=== PATIENT | female | born 1965 ===

== ENCOUNTER 2017-02-10 14:12 | Emergency (ER) | payer BC ==
[2017-02-10 14:33] VITALS: BP 144/76
--- NOTE | 2017-02-10 15:07 | UC ---
Karly Coppola Emily, scribed for Erica Mcfarlane MD on 02/10/17 at 1458 . Upper Extremity HPI - HPI Summary HPI Summary: This patient is a 51 year old F presenting to urgent care accompanied by daughter with a chief complaint of L arm pain that began last night. The CC is described as soreness and fullness in the distal upper arm. The patient rates the pain 6/10 in severity. Symptoms minimally relieve by Ibuprofen, 400mg, taken early this am. No analgesia since. Patient reports pain in the muscle. Denies pain in the elbow or wrist. Pt states intermittently gets tingling in L hand. No weakness. Patient denies fevers, chills, CP, SOB, L shoulder pain, and bruising on L arm. No trauma. Pt is LHD. Pt denies direct trauma. Pt reports lifting a heavy turkey and carrying heavy shopping bags in the past 3 days. Patients medications reviewed this visit. - History of Current Complaint Chief Complaint: UCUpperExtremity Stated Complaint: LEFT ARM INJURY Time Seen by Provider: 02/10/17 14:45 Hx Obtained From: Patient Onset/Duration: Sudden Onset, Lasting Days Severity Initially: Moderate Severity Currently: Moderate Pain Intensity: 6 Pain Scale Used: 0-10 Numeric Location Of Pain: Is Discrete @ - left distal tricep Associated Signs And Symptoms: Positive: Other - Positive distal tricep pain.. Negative: Bruising Related History: Dominant Hand Left - Allergies/Home Medications Allergies/Adverse Reactions: Allergies Allergy/AdvReac Type Severity Reaction Status Date / Time Penicillins Allergy Rash Verified 02/10/17 14:34 Home Medications: Home Medications NK [No Home Medications Reported] 02/10/17 [History Confirmed 02/10/17] PMH/Surg Hx/FS Hx/Imm Hx Previously Healthy: Yes Endocrine History: Other Other Endocrine History: Negative diabetes Cardiovascular History: Other Other Cardiovascular History: Negative hypertension - Surgical History Surgical History: Yes Surgery Procedure, Year, and Place: appy, gallbladder - Family History Known Family History: Positive: Diabetes - Sister - Social History Occupation: Employed Full-time Alcohol Use: None Substance Use Type: None Smoking Status (MU): Never Smoked Tobacco - Immunization History Most Recent Influenza Vaccination: unknown Review of Systems Constitutional: Other - Negative fever and chills Skin: Other - Negative bruising Respiratory: Other - Negative SOB Cardiovascular: Other - Negative CP Musculoskeletal: Other: - Positive L arm pain. Negative L shoulder pain Neurological: Other - Positive numbness and tingling in L hand All Other Systems Reviewed And Are Negative: Yes Physical Exam Triage Information Reviewed: Yes Appearance: Well-Appearing, No Pain Distress, Well-Nourished Vital Signs: Initial Vital Signs Temp 98.3 F 02/10/17 14:28 Pulse 86 02/10/17 14:28 Resp 16 02/10/17 14:28 BP 144/76 02/10/17 14:28 Pulse Ox 99 02/10/17 14:28 Vital Signs Reviewed: Yes Eye Exam: Normal Eyes: Positive: Conjunctiva Clear ENT Exam: Normal ENT: Positive: Normal ENT inspection, Hearing grossly normal, Pharynx normal, Pharyngeal erythema, Nasal congestion, Nasal drainage, TMs normal Dental Exam: Normal Neck exam: Normal Neck: Positive: Supple, Nontender, No Lymphadenopathy Respiratory Exam: Normal Respiratory: Positive: Chest non-tender, Lungs clear, Normal breath sounds, No respiratory distress, No accessory muscle use Cardiovascular Exam: Normal Cardiovascular: Positive: RRR, Other: - 2+ radial, 2+ ulnar CBT <2 sec no edema Musculoskeletal: Positive: Other: - + full abduction + full flex/ext elbow, wrist + pronate/supinate No pain along clavilce or scapula no spinous process pain minimal discomfort with palpation distal edge of tricep no edema, ecchymosis No pain with palpation of elbow Neurological: Positive: Other: - + thumb up, a ok, finger spread, finger cross 5 /5 graps Psychological Exam: Normal Skin Exam: Normal Diagnostics - Radiology Elbow XR Radiology Interpretation Completed By: Radiologist - Left elbow XR reveals, per radiologist, no evidence for fracture. ED physician has reviewed this radiology report and agrees. Re-Evaluation - Re-Evaluation First Eval Comment: reviewed imaging with pt. unable to to get ultrasound - low suspicion fot DVT. gave referral to sport medicine, physician referral. sling. exercises reviewed. motrin/apap. return precautions discussed. Comfortable and in agreement with plan Upper Extremity Course/Dx - Course Course Of Treatment: pt with left distal tricep pain x 24 hours. No direct trauma pt was doing heavy lifting and is LHD. Will check xray. ultrasound it able to get today - very low suspicion for DVT or hematoma based on exam and risk factor. will give motrin. sling. reassess following xray - Differential Dx/Diagnosis Provider Diagnoses: left arm pain Discharge - Discharge Plan Condition: Stable Disposition: HOME Patient Education Materials: Arm Pain (ED) Referrals: Sports Medicine Athletic Perf [Provider Group] [facility] [place] [facility]IAN REFERRAL [Outside] Additional Instructions: The doctor that evaluated you today thinks your pain in related to straining the muscle in your arm. The xrays did not show any concerning findings. The doctor recommends the following: - wear sling for comfort and support - Alternate ibuprofen (Advil, Motrin) 600mg and tylenol every 3hours for pain. Take with food. Do NOT take for more than 4-5 days - take your arm out of sling at least 3 times a day - slowly bend/straighten your elbow and make small circles with your shoulder as demonstrated at the urgent care - okay to apply ice or heat to your muscle soreness 2-3 times a day - contact the sports medicine clinic to schedule a follow-up appointment. If you pain increases, you develop arm weakness, you develop fevers, reddness or have any other concerns - it is recommended you go to the emergency department for further testing and evaluation. Otherwise, It is recommended you call the sports medicine group to schedule a follow-up You have also been given the physician referral center line - they will assist you in establishing with a new primary care provider The documentation as recorded by the Karly araiza Emily accurately reflects the service I personally performed and the decisions made by me, Erica Mcfarlane MD.
[2017-02-10] MEDS ORDERED: Ibuprofen TAB* 600 MG PO ONE (15:15)
[2017-02-10] MEDS ORDERED: Ibuprofen TAB* 600 MG ONE (15:16)
--- NOTE | 2017-02-10 15:39 | RAD ---
INDICATION: Left elbow pain. TECHNIQUE: 4 views of the left elbow were obtained. FINDINGS: The bones are in normal alignment. No joint effusion or fracture is seen. Joint spaces appear maintained. IMPRESSION: NO EVIDENCE FOR FRACTURE.
== END 2017-02-10 16:02 | disposition home or self-care (01) ==
LOC: UCEAST 14:12
DX: M79.602 Pain in left arm (principal)
CPT/HCPCS: 99212; A9270-GY; G0463

== ENCOUNTER 2017-12-06 09:01 | Emergency (ER) | payer BC ==
[2017-12-06 09:26] VITALS: BP 116/61
--- NOTE | 2017-12-06 09:34 | UC ---
Lower Extremity/Ankle HPI - HPI Summary HPI Summary: pt presents with daughter. Pt started an exercise program 1 week ago.Pt was doing jumping jacks,squats and developed yrn in left knee. pt has been using an tenzin wrap with some improvement. Pt with edema lateral margin. no paresthesia, no direct trauma, no weakness. pt has taken ibuprofen with mild improvement. no analgesia today. pt notes she has been limping with ongoing pain so decided to get checked. pt with pain in same knee previoiusly Pt's medications reviewed this visit - History of Current Complaint Chief Complaint: UCLowerExtremity Stated Complaint: LEFT KNEE PAIN Time Seen by Provider: 12/06/17 09:32 Hx Obtained From: Patient Pain Intensity: 6 - Allergies/Home Medications Allergies/Adverse Reactions: Allergies Allergy/AdvReac Type Severity Reaction Status Date / Time Penicillins Allergy Rash Verified 12/06/17 09:20 Home Medications: Home Medications Acetaminophen [Acetaminophen Extra Strength] 1,000 mg PO ONCE PRN 12/06/17 [ History Confirmed 12/06/17] Ibuprofen TAB* [Advil TAB*] 400 mg PO Q6H PRN 12/06/17 [History Confirmed ] PMH/Surg Hx/FS Hx/Imm Hx Previously Healthy: Yes - Surgical History Surgical History: Yes Surgery Procedure, Year, and Place: appy, gallbladder - Family History Known Family History: Positive: Diabetes - Sister - Social History Occupation: Employed Full-time Lives: With Family Alcohol Use: None Substance Use Type: None Smoking Status (MU): Never Smoked Tobacco - Immunization History Most Recent Influenza Vaccination: unknown Review of Systems Constitutional: Negative Skin: Other - edema left knee Musculoskeletal: Other: - left knee pain All Other Systems Reviewed And Are Negative: Yes Physical Exam - Summary Physical Exam Summary: Vital Signs Reviewed: Yes A+Ox3, no distress Eyes: Conjunctiva Clear ENT: Hearing grossly normal neck: supple Respiratory: Positive: No respiratory distress, No accessory muscle use Cardiovascular: skin color reflect adequate perfusion 2_ PT, DP left LE Musculoskeletal Exam: LLE: +SLE + flex/ext knee pain flexion > 45 +TTP lateral joint line neg anterior/psterior drawer Neurological: Positive: Alert, ambulatory without difficulty + gross sensation throughout walk with slight limp Psychological: Positive: Normal Response To Family Skin: Positive: no rash, no ecchymosis, edea lateral joint line left knee Triage Information Reviewed: Yes Vital Signs: Initial Vital Signs Temp 97.5 F 12/06/17 09:21 Pulse 72 12/06/17 09:21 Resp 16 12/06/17 09:21 BP 116/61 12/06/17 09:21 Pulse Ox 98 12/06/17 09:21 Diagnostics - Radiology No standard instances Radiology Interpretation Completed By: Radiologist - Patient Name: ARABELLA TOVAR Medical Record#: [id number] Ordering Physician: Erica Mcfarlane MD Acct.#: [id number] : 1965 Age: 52 Sex: F Location: [facility] Exam Date: 12/06/17950 ADM Status: REG ER Order Information: KNEE LEFT 4+ VWS Accession Number: [id number] CPT : 64382 INDICATION: Left knee pain after exercising COMPARISON: None TECHNIQUE: 4 view radiograph of the left knee. FINDINGS: The visualized bones are well- corticated and properly aligned. Degenerative changes of the left knee include mild narrowing of the medial compartment and sclerotic change of the medial and lateral tibial plateau. There is a small amount of suprapatellar joint effusion. There is no acute fracture, dislocation or other focal bony abnormality. IMPRESSION: Small left suprapatellar joint effusion and mild degenerative changes as described above. If the patient's symptoms persist, follow-up imaging is recommended. <Electronically signed by Paul Whitmore MD in OV> 12/06/17 1023 Dictated By: Paul Whitmore MD Dictated Date/Time: 12/06/17 1023 Transcribed Date/ Time: 12/06/17 1022 Copy to: CC:Erica Mcfarlane MD; No Primary Care Phys,NOPCP Imaging - [facility] Imaging [facility] [address] [address] ph ([phone]) ph ([phone]) ph ([phone]) This report is only to be considered final once signed by the Provider(s) as displayed in the "<Electronically Signed by >" field (s). Absence of a signature indicates the report is in a draft status and still needs to be finalized. In the event this document was created by someone other than the signing Provider, the individual initiating the document will be listed in the "Entered by:" or "Dictated by:" ruiz. 1 of 1 Lower Extremity Course/Dx - Course Course Of Treatment: pt with pain lateral aspect of left knee s/p new exericse regimen. on exam, slight limp. pain on lateral joint stress and palp lateral joint line. + edema. will check imaging. if no fx, motroin/apap. tenzin wrap. crutches. sports medicine - Differential Dx/Diagnosis Provider Diagnoses: knee sprain, left Discharge - Sign-Out/Discharge Documenting (check all that apply): Patient Departure All imaging exams completed and their final reports reviewed: Yes - Discharge Plan Condition: Stable Disposition: HOME Patient Education Materials: Knee Sprain (ED), Crutch Instructions (ED) Referrals: Sports Medicine Athletic Perf [Provider Group] [facility] [place] [facility]IAN REFERRAL [Outside] No Primary Care Phys,NOPCP [Primary Care Provider] - Additional Instructions: -wear tenzin wrap for comfort and support -apply ice (20 min at a time) every 2-3 hours for the next 2 days -use crutches until you can walk normally without a limp -Elevate your leg - this will help with swelling and pain - Alternate ibuprofen (advil, Motrin) 600mg and tylenol every 3 hours for pain. Take with food. Do NOT take for more than 4-5 days -Contact the sports medicine office to arrange a follow-up appointment. You have also been given the referral information for the physician referral center - it is recommended you contact this office for assistance establishing with a new primary care provider. - Billing Disposition and Condition Condition: STABLE Disposition: Home
[2017-12-06] MEDS ORDERED: Acetaminophen TAB* 325 MG PO ONE (09:51)
--- NOTE | 2017-12-06 10:26 | RAD ---
INDICATION: Left knee pain after exercising COMPARISON: None TECHNIQUE: 4 view radiograph of the left knee. FINDINGS: The visualized bones are well-corticated and properly aligned. Degenerative changes of the left knee include mild narrowing of the medial compartment and sclerotic change of the medial and lateral tibial plateau. There is a small amount of suprapatellar joint effusion. There is no acute fracture, dislocation or other focal bony abnormality. IMPRESSION: Small left suprapatellar joint effusion and mild degenerative changes as described above. If the patient's symptoms persist, follow-up imaging is recommended.
== END 2017-12-06 10:49 | disposition home or self-care (01) ==
LOC: UCCORT 09:01
DX: S83.92XA Sprain of unspecified site of left knee, initial encounter (principal); X50.9XXA Other and unspecified overexertion or strenuous movements or postures, initial encounter; Y93.A2 Activity, calisthenics; Y92.9 Unspecified place or not applicable; M25.462 Effusion, left knee; M17.12 Unilateral primary osteoarthritis, left knee; Z88.0 Allergy status to penicillin
CPT/HCPCS: 99213; A9270-GY; G0463